=== PATIENT | female | born 1945 | race Caucasian/White ===

== ENCOUNTER → 2021-02-25 | Outpatient (CLI) | payer MEDICARE ==
[2015-03-15 15:03] VITALS: BP 140/83
[~2021-02-25] MED LIST: ASPI-482 PO; CALC-31 PO; CYAN100031 PO; MULT-445 PO
--- NOTE | 2021-02-25 14:44 | RAD ---
MR#: [id number] Date of Study: 02/25/2021 Ordering Physician: NANCY PADRON, Referring Physician: MAO SOUSA Tech: BART Farrar, ARRT (R) (N) APPROVED REPORT Test Type: Exercise Stress Nurse/Tech: Darryn Koch RN Test Indications: CP Cardiac History: HTN, See EMR. Medications: ASA 81mg, See EMR. Medical History: See EMR. Resting ECG: SR Resting Heart Rate: 76 bpm Resting Blood Pressure: 186/104mmHg Pretest Chest Pain: No chest pain Nurse/Tech Notes Lungs CTA, Heart tones regular. Consent: The procedure was explained to the patient in lay terms. Informed consent was witnessed. Yinka eout was entered into [employer]. History and Stress Test performed by RT Trevor (R) (N) Stress Symptoms No chest pain or symptoms. POST EXERCISE Reason for Termination: Reached target heart rate Target HR: Yes Max HR: 138 bpm 113% of Maximum Predicted HR: 122 bpm Exercise duration: 5:14 min:sec, 2 Stage Exercise capacity: 7.0METs Max Blood Pressure: 192/96mmHg Blood Pressure response to exercise: Normal blood pressure response during stress. Heart Rate response to exercise: WNL Chest Pain: No. Arrhythmia: No. ST Change: No. Slight changes during stress with no symptoms, changes resolved by 01:55 in stage R. INTERPRETATION Stress EKG Conclusion: EKG with mild [address] segment depression at rest and with s tress. Imaging Protocol IMAGE PROTOCOL: Rest Tc-99m/stress Tc-99m 1 day Rest: Stress: Viability: Radiopharm.Tc99m [id number] Sestamibi Dose9.7mCi 31mCi Img Date 02/25/2021 02/25/2021 Inj-Img [id number]. 60min. Rest Admin Site:IV - Left AntecubitalAdministrator:RT Trevor (R)(N) Stress Admin Site: IV - Left AntecubitalAdministrator: RT Trevor (R)(N) STRESS DATA End Diast. Vol.57.0mlAv. Heart Rate86.0bpm End Syst. Vol.1.0mlCO Index BSA0.0L/min Myocardial Mass94.0gEject. Ypvghlba86.0% Stress Rates Pk. Fill Rate1.52EDV/secLVtime Pk. Fill 117.45msec Pk. Empty Rate5.25ESV/secLVtime Pk. Eject89.25msec 1/3 Pk. Fill1.29EDV/sec Stress Scores Regional WT0.00Summed WT0.00 Regional WM0.00Summed WM0.00 The rest and stress images show normal perfusion, normal contraction and thickening. LV Perf. Quant 17 Seg. SSS0.00 17 Seg. SRS0.00 17 Seg. SDS0.00 Stress Defect Extent (% LAD)0.00Rest Defect Extent (% LAD)0.00Rev. Defect Extent (% LAD)0.00 Stress Defect Extent (% LCX) 0.00Rest Defect Extent (% LCX)0.00Rev. Defect Extent (% LCX)0.00 Stress Defect Extent (% RCA)0.00Rest Defect Extent (% RCA)0.00Rev. Defect Extent (% RCA)0.00 Stress Defect Extent (% OSBALDO)0.00Rest Defect Extent (% OSBALDO)0.00Rev. Defect Extent (% OSBALDO)0.00 Other Information Quality:Average Risk Assessment: Low Risk Conclusion 1. Baseline resting EKG demonstrates subtle 1 to [address] segment depression suggestive but no t conclusive of ischemia. 2. Stress EKG was grossly unremarkable. 3. Normal perfusion at stress and rest. 4. Normal EF at greater than 70% 5. Low risk study overall. Signed by : Siddhartha Lambert, Electronically Approved : 02/25/2021 14:44:20
== END ==
LOC: NM 08:52
PROVIDERS: ATTEND Internal Medicine
DX: I10 Essential (primary) hypertension (principal); R07.89 Other chest pain
CPT/HCPCS: 78452; 93017; A9500